=== PATIENT | female | born 1990 | race Caucasian/White ===

== ENCOUNTER 2020-11-29 12:36 | Emergency (ER) | payer OTHER ==
[~2020-11-29 12:36] MED LIST: ADMELOG100 UNIT/1 SC; ALLOPURINOL300 MG PO; BASAGLAR K100 UNIT/1 SC; BUPROPION XL300 MG PO; HYZAAR 100-12.1 EACH PO; KLONOPIN1 MG PO; LASIX40 MG PO; NITROQUIK SL0.4 MG SL; ONDANSETRON ODT4 MG PO; SEROQUEL 100MG100 MG PO; SLOW FE142 MG PO; VENTOLIN HFA IN18 GM INH; VITAMIN D250 MCG PO; VITAMIN D5000 UNIT PO
[2020-11-29 14:13] LABS: BASOPHIL 0.3 % (0-2); EOSINOPHIL 0.6 % (0-5); HCT 39.3 % (37.0-47.0); HGB 12.6 g/dl (12.5-16.0); LYMPHOCYTE 17.1 % (15-48); MCH 30.7 pg (25.0-31.0); MCHC 32.1 g/dL (32.0-36.0); MCV 95.6 fL (78.0-100.0); MONOCYTE 6.6 % (0-12); NRBC 0; PLT 298 K/uL (150-400); RBC 4.11 M/uL (4.20-5.40); RDW 12.2 % (11.5-14.0)
[2020-11-29 14:45] LABS: BUN 17 mg/dL (7-18); C-REACTIVE PROTEIN > 18.00 mg/dL (<=0.90); CHLORIDE 99 mmol/L (98-107); CO2 (BICARBONATE) 27 mmol/L (21-32); CREATININE 1.27 mg/dL (0.51-0.95); GLUCOSE 303 mg/dL (74-106); POTASSIUM 3.9 mmol/L (3.5-5.1)
[2020-11-29] MEDS ORDERED: DOXYCYCLINE MO100 MG PO (15:35)
[2020-11-29] MEDS ORDERED: DICLOFENAC SODI75 MG PO (15:35)
== END 2020-11-29 15:49 | disposition home or self-care (01) ==
LOC: FER 12:36
PROVIDERS: Emergency Medicine
DX: L03.116 Cellulitis of left lower limb (principal); I12.9 Hypertensive chronic kidney disease with stage 1 through stage 4 chronic kidney disease, or unspecified chronic kidney disease; E11.22 Type 2 diabetes mellitus with diabetic chronic kidney disease; N18.9 Chronic kidney disease, unspecified; Z87.891 Personal history of nicotine dependence
CPT/HCPCS: 36415; 73630; 80048; 85025; 86140; 96372; J1040; J1885

== ENCOUNTER 2021-04-17 13:54 | Emergency (ER) | payer OTHER ==
[~2021-04-17 13:54] MED LIST changes: +DICLOFENAC SODI75 MG PO; +DOXYCYCLINE MO100 MG PO
== END 2021-04-17 17:45 | disposition home or self-care (01) ==
LOC: FER 13:54
DX: M79.672 Pain in left foot (principal); E11.9 Type 2 diabetes mellitus without complications; I10 Essential (primary) hypertension; Z88.8 Allergy status to other drugs, medicaments and biological substances
CPT/HCPCS: 73630; 93971; J1100

== ENCOUNTER 2021-05-08 11:53 | Emergency (ER) | payer OTHER | END 2021-05-08 17:24 | disposition home or self-care (01) | LOC: FER 11:53 | DX: E11.40 Type 2 diabetes mellitus with diabetic neuropathy, unspecified (principal); G89.29 Other chronic pain; E11.22 Type 2 diabetes mellitus with diabetic chronic kidney disease; I12.9 Hypertensive chronic kidney disease with stage 1 through stage 4 chronic kidney disease, or unspecified chronic kidney disease; N18.9 Chronic kidney disease, unspecified; J45.909 Unspecified asthma, uncomplicated; Z88.8 Allergy status to other drugs, medicaments and biological substances | CPT/HCPCS: 73610 ==

== ENCOUNTER → 2022-02-19 | Day surgery (SDC) | payer OTHER ==
[~2022-02-19] VITALS: Ht 162.6 cm; Wt 109.1 kg
[~2022-02-19] MED LIST changes: +BRIN20TA PO; +FEROSUL325 MG PO; +GABAPENTIN600 MG PO; +PRENATAL FORMU1 EACH PO; +PROTONIX 40MG T40 MG PO
[2022-02-19 06:40] LABS: HCG (URINE) SCREEN NEGATIVE (NEGATIVE)
[2022-02-19 07:03] LABS: HCT 37.5 % (37.0-47.0); HGB 12.6 g/dl (12.5-16.0); MCH 32.5 pg (25.0-31.0); MCHC 33.6 g/dL (32.0-36.0); MCV 96.6 fL (78.0-100.0); MPV 8.8 fL (6.0-9.5); RBC 3.88 M/uL (4.20-5.40); RDW 12.5 % (11.5-14.0); WBC 11.9 K/uL (4.0-10.5)
[2022-02-19 07:22] LABS: BUN/CREAT RATIO (CALC) 15.1 RATIO; CREATININE 1.19 mg/dL (0.51-0.95); POTASSIUM 3.9 mmol/L (3.5-5.1)
== END | disposition home or self-care (01) ==
LOC: FAS 06:11
PROVIDERS: Anesthesiology; Legal Medicine
DX: G56.02 Carpal tunnel syndrome, left upper limb (principal); Z88.8 Allergy status to other drugs, medicaments and biological substances; Z98.51 Tubal ligation status; D64.9 Anemia, unspecified; E11.22 Type 2 diabetes mellitus with diabetic chronic kidney disease; N18.30 Chronic kidney disease, stage 3 unspecified; J45.909 Unspecified asthma, uncomplicated; G47.30 Sleep apnea, unspecified
CPT/HCPCS: 36415; 80048; 84703; J0690; J2250; J2405; J2704; J2795; J3010; J7120